=== PATIENT | female | born 1995 | race Caucasian/White ===

== ENCOUNTER 2023-10-23 08:16 | Emergency (ER) | payer MEDICAID ==
[2023-10-23 08:31] VITALS: BP 136/87; O2SAT 98
--- NOTE | 2023-10-23 09:02 | ED Physician Documentation ---
PD HPI LOWER EXT INJURY - Stated complaint Stated Complaint: LT KNEE PX, SWELLING,DIZZINESS - Chief complaint Chief Complaint: Ext Problem - History obtained from History obtained from: Patient - Additional information Additional information: Patient is a 27-year-old female presenting for evaluation of left injury that occurred on Tuesday evening. Patient states that she was trying to prevent her dog from running out of the house when she fell. She denies hitting her head or having LOC. Since that time she has had a lot of pain to the left knee and pain with bearing weight. She has been occasionally using acetaminophen with the last dose yesterday. She did ice the knee overnight. Denies prior injuries to this extremity. Review of Systems Musculoskeletal: reports: Extremity pain Neurologic: denies: Head injury PD PAST MEDICAL HISTORY - Past Medical History Cardiovascular: Murmur - Past Surgical History Past Surgical History: Yes - Present Medications Home Medications: Ambulatory Orders Medication Instructions Recorded Confirmed Lidocaine Patch 5% [Lidoderm Patch] 1 patch TOP DAILY PRN #10 patch 10/23/23 - Allergies Allergies/Adverse Reactions: Allergies Allergy/AdvReac Type Severity Reaction Status Date / Time iodine AdvReac Unknown Verified 09/21/23 23:05 mold AdvReac Unknown Verified 09/21/23 23:30 shellfish derived AdvReac Unknown Verified 09/21/23 23:05 Sulfa (Sulfonamide AdvReac Unknown Verified 09/21/23 23:05 Antibiotics) - Social History Does the pt smoke?: No Smoking Status: Never smoker Does the pt drink ETOH?: Yes Does the pt have substance abuse?: No PD ED PE NORMAL - General General: Alert and oriented X 3, No acute distress, Well developed/nourished - HEENT HEENT: Atraumatic - Cardiac Cardiac: Strong equal pulses - Respiratory Respiratory: No respiratory distress - Extremities Extremities: Other (Swelling, tenderness to medial left knee, pain on range of motion, particularly with extension but she Abels is able to extend and flex, distal pulses intact, no tenderness more distally in lower extremity or over femur; No redness or warmth) Results - Vitals Vitals: Vital Signs - 24 hr 10/23/23 08:23 Temperature 36.2 C L Heart Rate 85 Respiratory 18 Rate Blood Pressure 136/87 H O2 Saturation 98 Oxygen O2 Source Room air PD Medical Decision Making - ED course Complexity details: reviewed results, re-evaluated patient, d/w patient ED course: Patient presenting for evaluation of left knee injury 2 days ago. Neurovascularly intact. No signs of a septic joint. No injuries elsewhere. No head injury. X-ray was obtained which I reviewed I see no fracture or dislocation. Patient counseled on continued supportive care with knee immobilizer and crutches. Advised on need for close follow-up if symptoms are not improving as well as concerning symptoms to return for. Departure - Departure Disposition: 01 Home, Self Care Clinical Impression: Left knee injury Condition: Stable Instructions: ED Knee Pain [facility] Prescriptions: Lidocaine Patch 5% [Lidoderm Patch] 1 patch TOP DAILY PRN #10 patch PRN Reason: pain Comments: The x-ray of your knee does not show a broken or out of place bone. We have placed you into a knee immobilizer and given you crutches. Continue with ice, anti-inflammatories such as acetaminophen or ibuprofen, lidocaine patches which I have sent to [facility] in [place]. If your symptoms or not getting better over the course of the next week then I would recommend close follow-up with your primary care provider. Forms: PCP List Discharge Date/Time: 10/23/23 10:17
--- NOTE | 2023-10-23 09:32 | XRAY Report ---
PROCEDURE: Knee 4 View LT INDICATIONS: pain/fall TECHNIQUE: 4 views of the knee(s) were acquired. COMPARISON: None. FINDINGS: Bones: No displaced fracture or dislocation. Soft tissues: No significant effusion. IMPRESSION: No acute osseous abnormality. If there is high concern for occult injury, consider repeat radiography or cross-sectional imaging. Reviewed by: Oliver Vega MD on 10/23/2023 9:31 AM [facility] Approved by: Oliver Vega MD on 10/23/2023 9:31 AM PST Station ID: [id number]
[2023-10-23] MEDS ORDERED: LIDOCAINE PATCH 5% TOP STA (09:50)
== END 2023-10-23 10:17 | disposition home or self-care (01) ==
LOC: ED 08:16
DX: S89.92XA Unspecified injury of left lower leg, initial encounter (principal); W18.30XA Fall on same level, unspecified, initial encounter; Y92.009 Unspecified place in unspecified non-institutional (private) residence as the place of occurrence of the external cause
CPT/HCPCS: 73564; 99283; A9270